=== PATIENT | male | born 1960 | race Caucasian/White ===

== ENCOUNTER 2021-01-08 15:31 | Emergency (ER) | payer BC ==
[2021-01-08 15:39] VITALS: RESP 18
[2021-01-08] MEDS ORDERED: SODIUM CHLORIDE 0.9% 1,000 ML IV STA (15:45)
[2021-01-08 15:59] LABS: Basophils # (A) 0.1 k/uL (0-0.2); Basophils % (A) 1 %; Eosinophils % (A) 0 %; HCT 45.5 % (39.0-53.0); HGB 16.3 gm/dL (13.0-17.5); Lymphocytes # (A) 0.9 k/uL (1.0-4.8); Lymphocytes % (A) 15 %; MCH 33.7 pg (25.0-35.0); MCHC 35.9 g/dL (31.0-37.0); MCV 93.9 fL (80.0-100.0); Mean Platelet Volume 7.3; Monocytes # (A) 0.5 k/uL (0-1.0); Monocytes % (A) 9 %; Neutrophils # (A) 4.3 k/uL (1.3-7.7); Neutrophils % (A) 74 %; Platelet Count 196 k/uL (150-450); RBC 4.84 m/uL (4.30-5.90); RDW 12.5 % (11.5-15.5); WBC 5.8 k/uL (3.8-10.6)
[2021-01-08 16:07] LABS: ALT 57 U/L (4-49); AST 73 U/L (17-59); African American GFR (CKD) >90 (>60 ml/min/1.73 sqM); Albumin 4.3 g/dL (3.5-5.0); Alkaline Phosphatase 88 U/L (38-126); Anion Gap 15 mmol/L; Blood Urea Nitrogen 16 mg/dL (9-20); Calcium 8.6 mg/dL (8.4-10.2); Carbon Dioxide 21 mmol/L (22-30); Chloride 100 mmol/L (98-107); Glucose 120 mg/dL (74-99); Magnesium 1.8 mg/dL (1.6-2.3); Non-African American GFR(CKD) 87 (>60 ml/min/1.73 sqM); Potassium 3.1 mmol/L (3.5-5.1); Sodium 136 mmol/L (137-145); Total Bilirubin 0.5 mg/dL (0.2-1.3); Total Protein 7.6 g/dL (6.3-8.2)
--- NOTE | 2021-01-08 16:15 | XR ---
EXAMINATION TYPE: XR chest 2V DATE OF EXAM: 01/08/2021 COMPARISON: NONE HISTORY: Shortness of breath and nausea. Chest pain. Covid contact. TECHNIQUE: Frontal and lateral views of the chest are obtained. FINDINGS: There faint increased opacities in the lower lungs and periphery of the left mid to lower lung and periphery right upper lung. No pleural effusion or pneumothorax. Background mild chronic par enchymal change felt present. The cardiac silhouette size is upper limits of normal. Multilevel spur ring in the spine. IMPRESSION: Chronic parenchymal changes with suspected faint multifocal bilateral peripheral acute i nfiltrates, worrisome for covid-19 infection.
[2021-01-08 16:16] LABS: Partial Thromboplastin Time 25.8 sec (22.0-30.0); Prothrombin Time 10.6 sec (9.0-12.0)
[2021-01-08] MEDS ORDERED: dexAMETHasone 2 MG TAB PO STA ×2 (16:37→18:19)
[2021-01-08 17:16] VITALS: TEMP 100.8
[2021-01-08] MEDS ORDERED: ACETAMINOPHEN TAB 325 MG TAB PO STA (17:42)
[2021-01-08] MEDS ORDERED: BAMLANIVIMAB 700 MG in SODIUM CHLORIDE 0.9% 50 ML IVPB ONE (17:45)
--- NOTE | 2021-01-08 18:51 | ED ---
SOB HPI - General Chief Complaint: Shortness of Breath Stated Complaint: possible COVID Time Seen by Provider: 01/08/21 15:36 Source: EMS Mode of arrival: EMS Limitations: no limitations - History of Present Illness Initial Comments: Patient complains of shortness of breath. He has no palpitations. He has no nausea or vomiting. He has no weakness. He has no lightheadedness. He has no dizziness. He has been exposed to another ill person. - Related Data Home Medications Medication Instructions Recorded Confirmed Pantoprazole Sodium [Protonix] 40 mg PO DAILY 01/11/15 01/08/21 lisinopriL [Prinivil] 20 mg PO DAILY 01/11/15 01/08/21 FLUoxetine HCL [PROzac] 10 mg PO DAILY 01/08/21 01/08/21 Magnesium Oxide [Mag-Ox] 800 mg PO DAILY 01/08/21 01/08/21 Simvastatin [Zocor] 20 mg PO HS 01/08/21 01/08/21 amLODIPine [Norvasc] 10 mg PO DAILY 01/08/21 01/08/21 Allergies Allergy/AdvReac Type Severity Reaction Status Date / Time clarithromycin [From Biaxin] Allergy Rash/Hives Verified 01/08/21 17:23 Review of Systems ROS Statement: Those systems with pertinent positive or pertinent negative responses have been documented in the HPI. ROS Other: All systems not noted in ROS Statement are negative. Past Medical History Past Medical History: GERD/Reflux, Hyperlipidemia, Hypertension Additional Past Medical History / Comment(s): "chest tightness", History of Any Multi-Drug Resistant Organisms: None Reported Past Surgical History: Heart Catheterization, Hernia Repair Past Anesthesia/Blood Transfusion Reactions: No Reported Reaction Past Psychological History: No Psychological Hx Reported Smoking Status: Never smoker Past Alcohol Use History: Daily Past Drug Use History: None Reported - Past Family History Mother Family Medical History: Cancer Brother(s) Family Medical History: Cancer General Exam Limitations: no limitations General appearance: alert, in no apparent distress Head exam: Present: atraumatic, normocephalic, normal inspection Eye exam: Present: normal appearance, PERRL, EOMI. Absent: scleral icterus, conjunctival injection, periorbital swelling ENT exam: Present: normal exam, mucous membranes moist Neck exam: Present: normal inspection. Absent: tenderness, meningismus, lymphadenopathy Respiratory exam: Present: normal lung sounds bilaterally. Absent: respiratory distress, wheezes, rales, rhonchi, stridor Cardiovascular Exam: Present: regular rate, normal rhythm, normal heart sounds. Absent: systolic murmur, diastolic murmur, rubs, gallop, clicks GI/Abdominal exam: Present: soft, normal bowel sounds. Absent: distended, tenderness, guarding, rebound, rigid Extremities exam: Present: normal inspection, full ROM, normal capillary refill. Absent: tenderness, pedal edema, joint swelling, calf tenderness Back exam: Present: normal inspection Neurological exam: Present: alert, oriented X3, CN II-XII intact Psychiatric exam: Present: normal affect, normal mood Skin exam: Present: warm, dry, intact, normal color. Absent: rash Course Vital Signs 01/08/21 01/08/21 01/08/21 15:33 17:16 18:00 Temperature 99.9 F H 100.8 F H Pulse Rate 87 87 82 Respiratory 18 18 18 Rate Blood Pressure 128/78 112/63 131/81 O2 Sat by Pulse 94 L 95 94 L Oximetry Medical Decision Making - Medical Decision Making Patient has some shortness of breath. His workup does not reveal an emergency requiring admission. He is feeling better after IV therapy and is stable for discharge. - Lab Data Result diagrams: 01/08/21 15:47 01/08/21 15:47 Lab Results 01/08/21 01/08/21 01/08/21 Range/Units 15:47 15:47 15:47 WBC 5.8 (3.8-10.6) k/uL RBC 4.84 (4.30-5.90) m/uL Hgb 16.3 (13.0-17.5) gm/dL Hct 45.5 (39.0-53.0) % MCV 93.9 (80.0-100.0) fL MCH 33.7 (25.0-35.0) pg MCHC 35.9 (31.0-37.0) g/dL RDW 12.5 (11.5-15.5) % Plt Count 196 (150-450) k/uL MPV 7.3 Neutrophils % 74 % Lymphocytes % 15 % Monocytes % 9 % Eosinophils % 0 % Basophils % 1 % Neutrophils # 4.3 (1.3-7.7) k/uL Lymphocytes # 0.9 L (1.0-4.8) k/uL Monocytes # 0.5 (0-1.0) k/uL Eosinophils # 0.0 (0-0.7) k/uL Basophils # 0.1 (0-0.2) k/uL PT 10.6 (9.0-12.0) sec INR 1.0 (<1.2) APTT 25.8 (22.0-30.0) sec Sodium 136 L (137-145) mmol/L Potassium 3.1 L (3.5-5.1) mmol/L Chloride 100 (98-107) mmol/L Carbon Dioxide 21 L (22-30) mmol/L Anion Gap 15 mmol/L BUN 16 (9-20) mg/dL Creatinine 0.95 (0.66-1.25) mg/dL Est GFR (CKD-EPI)AfAm >90 (>60 ml/min/1.73 sqM) Est GFR (CKD-EPI)NonAf 87 (>60 ml/min/1.73 sqM) Glucose 120 H (74-99) mg/dL Calcium 8.6 (8.4-10.2) mg/dL Magnesium 1.8 (1.6-2.3) mg/dL Total Bilirubin 0.5 (0.2-1.3) mg/dL AST 73 H (17-59) U/L ALT 57 H (4-49) U/L Alkaline Phosphatase 88 (38-126) U/L Troponin I (0.000-0.034) ng/mL NT-Pro-B Natriuret Pep pg/mL Total Protein 7.6 (6.3-8.2) g/dL Albumin 4.3 (3.5-5.0) g/dL Coronavirus (PCR) (Not Detectd) 01/08/21 01/08/21 01/08/21 Range/Units 15:47 15:47 15:49 WBC (3.8-10.6) k/uL RBC (4.30-5.90) m/uL Hgb (13.0-17.5) gm/dL Hct (39.0-53.0) % MCV (80.0-100.0) fL MCH (25.0-35.0) pg MCHC (31.0-37.0) g/dL RDW (11.5-15.5) % Plt Count (150-450) k/uL MPV Neutrophils % % Lymphocytes % % Monocytes % % Eosinophils % % Basophils % % Neutrophils # (1.3-7.7) k/uL Lymphocytes # (1.0-4.8) k/uL Monocytes # (0-1.0) k/uL Eosinophils # (0-0.7) k/uL Basophils # (0-0.2) k/uL PT (9.0-12.0) sec INR (<1.2) APTT (22.0-30.0) sec Sodium (137-145) mmol/L Potassium (3.5-5.1) mmol/L Chloride (98-107) mmol/L Carbon Dioxide (22-30) mmol/L Anion Gap mmol/L BUN (9-20) mg/dL Creatinine (0.66-1.25) mg/dL Est GFR (CKD-EPI)AfAm (>60 ml/min/1.73 sqM) Est GFR (CKD-EPI)NonAf (>60 ml/min/1.73 sqM) Glucose (74-99) mg/dL Calcium (8.4-10.2) mg/dL Magnesium (1.6-2.3) mg/dL Total Bilirubin (0.2-1.3) mg/dL AST (17-59) U/L ALT (4-49) U/L Alkaline Phosphatase (38-126) U/L Troponin I <0.012 (0.000-0.034) ng/mL NT-Pro-B Natriuret Pep 23 pg/mL Total Protein (6.3-8.2) g/dL Albumin (3.5-5.0) g/dL Coronavirus (PCR) Detected A (Not Detectd) 01/08/21 18:51 Twelve-lead EKG shows ventricular rate 84 bpm, normal ME interval and QRS complexes, no ST elevation or depression, interpreted by me as normal sinus rhythm. Disposition Clinical Impression: COVID-19 Disposition: HOME SELF-CARE Condition: Good Instructions (If sedation given, give patient instructions): Coronavirus Disease 2019 (COVID-19) Is patient prescribed a controlled substance at d/c from ED?: No Referrals: Ken Hanley MD [Primary Care Provider] - 1-2 days
[2021-01-08 19:47] VITALS: BP 117/74; PULSE 76
== END 2021-01-08 19:50 | disposition home or self-care (01) ==
LOC: EC 15:31
DX: U07.1 COVID-19 (principal); E78.5 Hyperlipidemia, unspecified; I10 Essential (primary) hypertension; K21.9 Gastro-esophageal reflux disease without esophagitis; Z79.899 Other long term (current) drug therapy
CPT/HCPCS: 36415; 93005; 83880; 80053; 83735; 84484; 85025; 85610; 85730; 87635; 71046; 99285; 96374; 96361; J8540; Q0239

== ENCOUNTER 2021-01-20 15:03 | Inpatient (IN) | payer BC ==
[2021-01-20] MEDS ORDERED: SODIUM CHLORIDE 0.9% 1,000 ML IV STA ×2 (15:26)
[2021-01-20] MEDS ORDERED: ONDANSETRON 4 MG/2 ML VIAL IVP STA (15:28)
[2021-01-20 15:53] LABS: Basophils # (A) 0.1 k/uL (0-0.2); Basophils % (A) 1 %; Eosinophils # (A) 0.2 k/uL (0-0.7); Eosinophils % (A) 2 %; HCT 40.8 % (39.0-53.0); HGB 14.3 gm/dL (13.0-17.5); Lymphocytes # (A) 2.1 k/uL (1.0-4.8); Lymphocytes % (A) 17 %; MCH 32.2 pg (25.0-35.0); Mean Platelet Volume 7.4; Monocytes # (A) 0.7 k/uL (0-1.0); Monocytes % (A) 5 %; Neutrophils # (A) 9.4 k/uL (1.3-7.7); Neutrophils % (A) 73 %; RBC 4.44 m/uL (4.30-5.90); RDW 12.4 % (11.5-15.5); WBC 12.8 k/uL (3.8-10.6)
--- NOTE | 2021-01-20 15:57 | ED ---
General Adult HPI - General Chief complaint: Recheck/Abnormal Lab/Rx Stated complaint: low blood pressure Time Seen by Provider: 01/20/21 15:15 Source: patient, EMS Mode of arrival: EMS Limitations: no limitations - History of Present Illness Initial comments: This 60-year-old male presents with a complaint of hypotension. He states that he was diagnosed with covid approximately 2 weeks ago. He initially was having some slight cough and shortness of breath. He was seen in the emergency department last week but was able to be discharged home. He states that over the past 3 days he is developed significant diarrhea. Every time he tries to eat or drink anything he will have diarrhea. He has had mild nausea but no vomiting. He denies any fevers or abdominal pain. He states that his blood pressure at home apparently was 60 systolic. If he stands up and he gets very lightheaded. He does complain of moderate fatigue as well. He denies any current chest pain or shortness of breath. There is no lower extremity pain or swelling. No other complaints or modifying factors. He denies any history of kidney problems in the past. He's never had any renal failure. He was here approximately 10 days ago and had normal renal function studies at that time. He states that his food and fluid input has been very minimal. He still is making minimal urine as well. - Related Data Home Medications Medication Instructions Recorded Confirmed Pantoprazole Sodium [Protonix] 40 mg PO DAILY 01/11/15 01/08/21 lisinopriL [Prinivil] 20 mg PO DAILY 01/11/15 01/08/21 FLUoxetine HCL [PROzac] 10 mg PO DAILY 01/08/21 01/08/21 Magnesium Oxide [Mag-Ox] 800 mg PO DAILY 01/08/21 01/08/21 Simvastatin [Zocor] 20 mg PO HS 01/08/21 01/08/21 amLODIPine [Norvasc] 10 mg PO DAILY 01/08/21 01/08/21 Allergies Allergy/AdvReac Type Severity Reaction Status Date / Time clarithromycin [From Biaxin] Allergy Rash/Hives Verified 01/20/21 15:32 Review of Systems ROS Statement: Those systems with pertinent positive or pertinent negative responses have been documented in the HPI. ROS Other: All systems not noted in ROS Statement are negative. Past Medical History Past Medical History: GERD/Reflux, Hyperlipidemia, Hypertension Additional Past Medical History / Comment(s): "chest tightness", History of Any Multi-Drug Resistant Organisms: None Reported Past Surgical History: Heart Catheterization, Hernia Repair Past Anesthesia/Blood Transfusion Reactions: No Reported Reaction Past Psychological History: No Psychological Hx Reported Smoking Status: Never smoker Past Alcohol Use History: Daily Past Drug Use History: None Reported - Past Family History Mother Family Medical History: Cancer Brother(s) Family Medical History: Cancer General Exam - General Exam Comments Initial Comments: GENERAL: The patient is well nourished and well hydrated. VITAL SIGNS: Heart rate, blood pressure, respiratory rate reviewed as recorded in nurse's notes. EYES: Pupils are round and reactive. Extraocular movements are intact. No conjunctival / lid redness or swelling. ENT: No external evidence of injury, swelling, or ecchymosis. Airway is patent. Throat is clear. NECK: Nontender. No swelling or evidence of injury. No subcutaneous emphysema. Trachea is midline. No thyroid mass. HEART: Regular rate and rhythm. Good peripheral pulses. LUNGS/CHEST: Breath sounds clear and equal bilaterally. No rales, rhonchi, or wheezes. No ecchymosis, subcutaneous emphysema, or tenderness. ABDOMEN: Abdomen soft without tenderness. No palpable masses or organomegaly. No peritoneal signs. No abdominal wall swelling or ecchymosis. EXTREMITIES: No extremity tenderness. Normal muscle tone and function. No thoracolumbar tenderness. NEUROLOGIC: Sensation is grossly intact. Cranial nerve exam reveals face is symmetrical, tongue is midline, speech is clear. SKIN: No abrasions or ecchymosis is noted. No induration or masses noted. PSYCHIATRIC: Alert and oriented. Appropriate behavior and judgment. Limitations: no limitations Course Vital Signs 01/20/21 01/20/21 01/20/21 15:06 15:44 16:25 Temperature 98.2 F Pulse Rate 85 72 84 Respiratory 18 18 18 Rate Blood Pressure 87/58 93/50 100/53 O2 Sat by Pulse 99 100 98 Oximetry Medical Decision Making - Medical Decision Making The patient was seen and examined. All diagnostics are reviewed. The EKG shows a normal sinus rhythm at a rate of 74. There is some diffuse flattened T waves but no ST elevation. The patient has right axis deviation. The IN intervals 170, QRS duration 96, and the QTc interval is 441. An IV is started and he is thoroughly hydrated with 2 L of 0.9 normal saline. He received Zofran 4 mg IV. His laboratory values came back showing a severe elevation of his BUN and creatinine consistent with acute kidney injury. His platelets are slightly elevated and his white blood cell count is slightly elevated as well. The CO2 is significantly low at 13. It is felt as though he is acidotic. He likely does have acute kidney injury due to his lack of hydration and significant diarrhea. Acute abdominal series with chest x-ray does show evidence of pneumonia, likely covid pneumonia. It is felt as though he would benefit from admission to the hospital for further treatment. Case is discussed with Dr. Wilson and he is agreeable with admission and would like D5 0.45 with bicarbonate. Page is out for the engineering technologist and we're currently awaiting their call back. His blood pressure has improved with IV fluids. Patient is agreeable and QUESTIONS are answered. - Lab Data Result diagrams: 01/20/21 15:42 01/20/21 15:42 Lab Results 01/20/21 01/20/21 01/20/21 Range/Units 15:42 15:42 15:42 WBC 12.8 H (3.8-10.6) k/uL RBC 4.44 (4.30-5.90) m/uL Hgb 14.3 (13.0-17.5) gm/dL Hct 40.8 (39.0-53.0) % MCV 92.0 (80.0-100.0) fL MCH 32.2 (25.0-35.0) pg MCHC 35.0 (31.0-37.0) g/dL RDW 12.4 (11.5-15.5) % Plt Count 615 H D (150-450) k/uL MPV 7.4 Neutrophils % 73 % Lymphocytes % 17 % Monocytes % 5 % Eosinophils % 2 % Basophils % 1 % Neutrophils # 9.4 H (1.3-7.7) k/uL Lymphocytes # 2.1 (1.0-4.8) k/uL Monocytes # 0.7 (0-1.0) k/uL Eosinophils # 0.2 (0-0.7) k/uL Basophils # 0.1 (0-0.2) k/uL PT 12.6 H (9.0-12.0) sec INR 1.2 H (<1.2) APTT 24.0 (22.0-30.0) sec Sodium 137 (137-145) mmol/L Potassium 3.5 (3.5-5.1) mmol/L Chloride 104 (98-107) mmol/L Carbon Dioxide 13 L (22-30) mmol/L Anion Gap 20 mmol/L BUN 73 H (9-20) mg/dL Creatinine 9.43 H* (0.66-1.25) mg/dL Est GFR (CKD-EPI)AfAm 6 (>60 ml/min/1.73 sqM) Est GFR (CKD-EPI)NonAf 5 (>60 ml/min/1.73 sqM) Glucose 133 H (74-99) mg/dL Plasma Lactic Acid Daniel (0.7-2.0) mmol/L Calcium 8.7 (8.4-10.2) mg/dL Magnesium 1.6 (1.6-2.3) mg/dL Total Bilirubin 0.5 (0.2-1.3) mg/dL AST 27 (17-59) U/L ALT 61 H (4-49) U/L Alkaline Phosphatase 122 (38-126) U/L Troponin I (0.000-0.034) ng/mL Total Protein 6.8 (6.3-8.2) g/dL Albumin 3.5 (3.5-5.0) g/dL 01/20/21 01/20/21 Range/Units 15:42 15:42 WBC (3.8-10.6) k/uL RBC (4.30-5.90) m/uL Hgb (13.0-17.5) gm/dL Hct (39.0-53.0) % MCV (80.0-100.0) fL MCH (25.0-35.0) pg MCHC (31.0-37.0) g/dL RDW (11.5-15.5) % Plt Count (150-450) k/uL MPV Neutrophils % % Lymphocytes % % Monocytes % % Eosinophils % % Basophils % % Neutrophils # (1.3-7.7) k/uL Lymphocytes # (1.0-4.8) k/uL Monocytes # (0-1.0) k/uL Eosinophils # (0-0.7) k/uL Basophils # (0-0.2) k/uL PT (9.0-12.0) sec INR (<1.2) APTT (22.0-30.0) sec Sodium (137-145) mmol/L Potassium (3.5-5.1) mmol/L Chloride (98-107) mmol/L Carbon Dioxide (22-30) mmol/L Anion Gap mmol/L BUN (9-20) mg/dL Creatinine (0.66-1.25) mg/dL Est GFR (CKD-EPI)AfAm (>60 ml/min/1.73 sqM) Est GFR (CKD-EPI)NonAf (>60 ml/min/1.73 sqM) Glucose (74-99) mg/dL Plasma Lactic Acid Daniel 1.0 (0.7-2.0) mmol/L Calcium (8.4-10.2) mg/dL Magnesium (1.6-2.3) mg/dL Total Bilirubin (0.2-1.3) mg/dL AST (17-59) U/L ALT (4-49) U/L Alkaline Phosphatase (38-126) U/L Troponin I <0.012 (0.000-0.034) ng/mL Total Protein (6.3-8.2) g/dL Albumin (3.5-5.0) g/dL Disposition Clinical Impression: Diarrhea, Hypotension, Dehydration, COVID-19, Acute kidney injury, Acidosis, Leukocytosis, Pneumonia due to COVID-19 virus, Weakness Disposition: ADMITTED IP TO THIS [facility] Condition: Fair Is patient prescribed a controlled substance at d/c from ED?: No Referrals: Ken Hanley MD [Primary Care Provider] - 1-2 days Time of Disposition: 16:55 Decision Date: 01/20/21 Decision Time: 16:55
[2021-01-20 16:01] LABS: Platelet Count 615 k/uL (150-450)
[2021-01-20 16:02] LABS: Albumin 3.5 g/dL (3.5-5.0); Calcium 8.7 mg/dL (8.4-10.2); Magnesium 1.6 mg/dL (1.6-2.3); Potassium 3.5 mmol/L (3.5-5.1); Total Bilirubin 0.5 mg/dL (0.2-1.3); Total Protein 6.8 g/dL (6.3-8.2)
[2021-01-20 16:08] LABS: INR 1.2 (<1.2); Prothrombin Time 12.6 sec (9.0-12.0)
--- NOTE | 2021-01-20 16:10 | XR ---
EXAMINATION TYPE: XR abdomen acute w cxr DATE OF EXAM: 01/20/2021 COMPARISON: None HISTORY: Diarrhea TECHNIQUE: Acute abdominal series performed with a frontal chest and 6 upright and supine views of th e abdomen. FINDINGS: Normal colonic bowel gas is present. Some nonspecific small bowel gas is present. No free a ir is evident. No suspicious differential air-fluid levels are evident. Heart size is normal. Pulmonary vasculature is normal. Some mild infiltrate may be present within the lung coles this is nonspecific and can be related to subsegmental atelectasis or atypical pneumonia IMPRESSION: 1. Clinical consideration for mild atypical pneumonia. 2. Nonspecific abdomen
[2021-01-20] MEDS ORDERED: ONDANSETRON 4 MG/2 ML VIAL IVP PRN (16:56)
[2021-01-20] MEDS ORDERED: NALOXONE 0.4 MG/ML 1 ML VIAL IV PRN (16:56)
[2021-01-20] MEDS ORDERED: HYDROcodone/APAP 5-325MG 1 EACH TAB PO PRN (17:01)
[2021-01-20] MEDS: ENOXAPARIN 40 MG/0.4 ML SYRINGE SQ SCH (17:20)
[2021-01-20] MEDS: PANTOPRAZOLE 40 MG/10 ML VIAL IV SCH (17:21)
[2021-01-20] MEDS ORDERED: DEXTROSE 5%-0.45% NACL 1,000 ML with SODIUM BICARB (1 MEQ/ML) 50 ML IV ONE ×2 (17:30)
[2021-01-20 19:11] LABS: Appearance,Urine Clear (Clear); Bilirubin,Urine Negative (Negative); Blood,Urine Trace (Negative); Color,Urine Yellow; Glucose,Urine (UA) Negative (Negative); Hyaline Casts,Urine 65 /lpf (0-2); Ketones,Urine Negative (Negative); Leukocyte Esterase,Urine Negative (Negative); Mucus,Urine Occasional /hpf; Nitrite,Urine Negative (Negative); Protein,Urine 1+ (Negative); RBC,Urine 3 /hpf (0-5); Specific Gravity,Urine 1.008 (1.001-1.035); Squamous Epithelial Cell,Urine <1 /hpf (0-4); Urobilinogen,Urine <2.0 mg/dL (<2.0); WBC,Urine 6 /hpf (0-5)
[2021-01-20] MEDS: ATORVASTATIN 10 MG TAB PO SCH (21:34)
[2021-01-21] MEDS: DEXTROSE 5%-0.45% NACL 1,000 ML with SODIUM BICARB (1 MEQ/ML) 50 ML IV SCH ×6 (04:41→18:18)
[2021-01-21 08:02] LABS: Calcium 8.8 mg/dL (8.4-10.2); Magnesium 1.4 mg/dL (1.6-2.3); Potassium 3.2 mmol/L (3.5-5.1)
[2021-01-21 08:51] LABS: Basophils # (A) 0.1 k/uL (0-0.2); Basophils % (A) 1 %; Eosinophils # (A) 0.2 k/uL (0-0.7); Eosinophils % (A) 2 %; HCT 40.4 % (39.0-53.0); HGB 14.1 gm/dL (13.0-17.5); Lymphocytes # (A) 1.9 k/uL (1.0-4.8); Lymphocytes % (A) 20 %; MCH 32.6 pg (25.0-35.0); MCV 93.1 fL (80.0-100.0); Mean Platelet Volume 7.4; Monocytes # (A) 1.2 k/uL (0-1.0); Monocytes % (A) 12 %; Neutrophils # (A) 6.1 k/uL (1.3-7.7); Neutrophils % (A) 63 %; Platelet Count 610 k/uL (150-450); RBC 4.33 m/uL (4.30-5.90); RDW 12.5 % (11.5-15.5); WBC 9.8 k/uL (3.8-10.6)
[2021-01-21] MEDS ORDERED: Magnesium Replacement Protocol 1 EACH MISC MISCELLANE PRN (09:13)
[2021-01-21] MEDS ORDERED: Potassium Replacement Protocol 1 EACH MISC MISCELLANE PRN (09:13)
[2021-01-21] MEDS: MAGNESIUM OXIDE 400 MG TAB PO SCH (09:30)
[2021-01-21] MEDS: POTASSIUM CHLORIDE ER 20 MEQ TAB.ER PO SCH ×4 (09:30→18:18)
[2021-01-21] MEDS: PANTOPRAZOLE 40 MG/10 ML VIAL IV SCH (09:30)
[2021-01-21] MEDS: ENOXAPARIN 40 MG/0.4 ML SYRINGE SQ SCH (09:31)
[2021-01-21] MEDS: MAGNESIUM SULFATE-D5W PMX 1 GM in DEXTROSE/WATER 1 100ML.BAG IVPB SCH ×3 (09:31→11:08)
[2021-01-21] MEDS: FLUoxetine HCL 10 MG CAP PO SCH (09:33)
[2021-01-21 10:37] VITALS: BMI 24.7
--- NOTE | 2021-01-21 11:41 | CONS ---
CONSULTATION REASON FOR CONSULT: Renal failure. HISTORY OF PRESENT ILLNESS: The patient is a 60-year-old male who was admitted to the hospital with complaints of increased weakness and hypotension. The patient stated that his blood pressure was in the 60s at home and he had been feeling progressively weak. He is maintained on HUGO inhibitors for hypertension. He admitted to decreased oral intake. Denies significant diarrhea. No fever. The patient's COVID PCR came back positive. His creatinine was 9.4 on labs yesterday and this morning it is at 3.26. Blood pressure is improved. Patient has been maintained on IV fluids. Of note, patient did report having diarrhea for about 2-3 days prior to admission. No previous history of kidney diseases. The patient did admit to taking NSAIDs as well. PAST MEDICAL HISTORY: Hypertension, gastroesophageal reflux disease, hyperlipidemia. PAST SURGICAL HISTORY: Cardiac catheterization, hernia repair. SOCIAL HISTORY: Negative for smoking, drug abuse or alcohol abuse. MEDICATIONS: Medications prior to admission include Protonix, Prinivil, Prozac, magnesium, Zocor, Norvasc. ALLERGIES: Allergies include BIAXIN causes rash and hives. REVIEW OF SYSTEMS: As per HPI. Other systems negative. PHYSICAL EXAMINATION: Patient is comfortable, awake, not in any acute distress. Blood pressure 103/62, heart rate 74 per minute. He is afebrile. Examination of lower extremities shows no evidence of edema. Abdomen is soft, nontender. ELECTRICAL INSTALLER exam grossly intact. LABS: Labs show sodium 143, potassium 3.2, chloride 116, CO2 is 19, BUN 53, creatinine 3.26, hemoglobin 14.1. UA shows 1+ protein, trace blood. PCR for coronavirus positive. ASSESSMENT: 1. Acute kidney injury prerenal and a component of acute tubular necrosis, significantly improved now with IV hydration. Patient was quite hypotensive. He also had used NSAIDs along with his regular HUGO inhibitors for hypertension prior to admission. Currently patient is maintained on IV fluids. I will continue the IV fluids. We will check an ultrasound of the kidneys and repeat labs in a.m. Patient is advised to avoid use of NSAIDs and continue to hold off on the HUGO inhibitors for now. 2. Severe metabolic acidosis associated with renal failure and diarrhea, now improved. 3. COVID-19 infection diagnosed 2 weeks ago. Chest x-ray does not show any obvious infiltrates. 4. Hypokalemia associated with diarrhea, decreased oral intake, being replaced. PLAN: Continue IV fluids in the form of IV bicarb. Repeat labs in a.m. Replace potassium. Check ultrasound of the kidneys. Thank you for this consultation. Will continue to follow the patient with you during his hospitalization. MMJACKYL / TAMIKAN: [id number] /
--- NOTE | 2021-01-21 13:19 | US ---
EXAMINATION TYPE: US kidneys/renal and bladder DATE OF EXAM: 01/21/2021 COMPARISON: NONE CLINICAL HISTORY: rf. Elevated BUN/creatinine. EXAM MEASUREMENTS: Right Kidney: 12.9 x 4.9 x 5.8cm Left Kidney: 12.1 x 6.7 x 5.0 cm Right Kidney: measures large, cyst measuring 1.5 x 0.7 x 0.8cm Left Kidney: similar in size to right, no hydronephrosis or masses seen Bladder: wnl as seen, not fully distended There is no evidence for hydronephrosis at this point in time. No nephrolithiasis is seen. No alexandre rning solid or cystic masses are identified. Subcentimeter lesion right kidney too small to definiti vely characterize favored benign. The urinary bladder is poorly distended and is thus suboptimally ev aluated. Bilateral ureteral jets are not seen. IMPRESSION: No hydronephrosis is noted bilaterally.
[2021-01-21 15:20] LABS: Magnesium 2.6 mg/dL (1.6-2.3)
[2021-01-21] MEDS: PSYLLIUM HUSK 100% 6 GM PACKET PO SCH ×2 (17:10→19:56)
[2021-01-21] MEDS: DIPHENOX-ATROP 2.5-0.025 MG 1 EACH TAB PO SCH ×2 (17:10→19:56)
[2021-01-21] MEDS: FAMOTIDINE 20 MG TAB PO SCH ×2 (17:14→19:56)
[2021-01-21] MEDS: ATORVASTATIN 10 MG TAB PO SCH (19:56)
[2021-01-21 19:59] VITALS: RESP 18
--- NOTE | 2021-01-22 | P.HPIM ---
History of Present Illness H&P Date: 01/21/21 Chief Complaint: Tired History of presenting complaint: This is a pleasant [address] Hanley. He was diagnosed with COVID about 2 weeks ago. Initially a slight cough and some shortness of breath. Becky in the ER about a week ago but he was discharged on. On the last few days he has developed quite a bit of diarrhea. He feels every time he eats or drink at rest through. Some nausea. His blood pressure at home was noted to be about 60 systolic. He gets dizzy lightheaded when he stands up. Feels very tired and rundown. He had some fever earlier than likely improved. About 10 days ago when he was here his renal function was normal. Appetite has been poor. Decreased urine output Review of systems: GEN.: Weak tired decreased appetite EYES: None HEENT: None NECK: None RESPIRATORY: None CARDIOVASCULAR: None GASTROINTESTINAL: As above GENITOURINARY: None MUSCULOSKELETAL: None LYMPHATICS: None HEMATOLOGICAL: None PSYCHIATRY: None NEUROLOGICAL: None Past medical history to include: GERD, hypertension, hyperlipidemia Social history: . 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 Former smoker. Alcohol occasionally Physical examination: VITAL SIGNS: 98.2, 85, 18, 87/58, 99% on room air GENERAL: BMI 24.8, laying in bed, tired. EYES: Pupils equal. Conjunctiva normal. HEENT: External appearance of nose and ears normal, oral cavity grossly normal. NECK: JVD not raised; masses not palpable. HEART: First and second heart sounds are normal; no edema. LUNGS: Respiratory rate normal; clear to auscultation. ABDOMEN: Soft, nontender, liver spleen not palpable, no masses palpable. PSYCH: [Alert and oriented x3; mood and affect tired l. NEUROLOGICAL: Cranial nerves grossly intact; no facial asymmetry, power and sensation grossly intact. LYMPHATICS: No lymph nodes palpable in the axilla and neck INVESTIGATIONS, reviewed in the clinical context: WBC 9.8 hemoglobin 14.1 platelet 610 potassium 3.2 bun 53 creatinine 3.26 magnesia 1.4 EKG tracing personally reviewed by me-normal sinus rhythm nonspecific ST/T-wave changes Admission labs: WBC 12.8 hemoglobin 14.3 potassium 3.5 bun 73 creatinine 9.43 Coronavirus [PCR]-detected Previous labs: Creatinine 0.951 January 08 of this year Assessment and plan: -Acute severe kidney injury, prerenal due to diarrhea and decreased oral intake. IV fluids given. Kidney function started to respond. Nephrology consulted. Follow electrolytes -Acute diarrhea likely due to COVID 19. We will use Metamucil to bind up the bowels. And also use Lomotil -Nausea secondary to COVID 19. She was for liquid diet -GERD, use Pepcid -Essential hypertension. Hold off antihypertensive for now. -Symptomatic hypotension from volume loss. IV fluids. -Hyperlipidemia, on Zocor -Anxiety on Prozac -DVT prophylaxis placed on Lovenox -: COVID 19 pneumonia. Patient check stat x-ray on January 08 showed infiltrates. Patient's pulse ox is good. No indication for steroids. Care was discussed with the patient. Questions answered. Given the complexity and severity of patient's condition expect the patient to be in the hospital at least for 2 overnights Past Medical History Past Medical History: GERD/Reflux, Hyperlipidemia, Hypertension Additional Past Medical History / Comment(s): "chest tightness", History of Any Multi-Drug Resistant Organisms: None Reported Past Surgical History: Cholecystectomy, Heart Catheterization, Hernia Repair Past Anesthesia/Blood Transfusion Reactions: No Reported Reaction Past Psychological History: No Psychological Hx Reported Smoking Status: Former smoker Past Alcohol Use History: Occasional Past Drug Use History: None Reported - Past Family History Mother Family Medical History: Cancer Brother(s) Family Medical History: Cancer Medications and Allergies Home Medications Medication Instructions Recorded Confirmed Type Pantoprazole Sodium [Protonix] 40 mg PO DAILY 01/11/15 01/20/21 History lisinopriL [Prinivil] 20 mg PO DAILY 01/11/15 01/20/21 History FLUoxetine HCL [PROzac] 10 mg PO DAILY 01/08/21 01/20/21 History Magnesium Oxide [Mag-Ox] 800 mg PO DAILY 01/08/21 01/20/21 History Simvastatin [Zocor] 20 mg PO HS 01/08/21 01/20/21 History amLODIPine [Norvasc] 10 mg PO DAILY 01/08/21 01/20/21 History HYDROcodone/APAP 5-325MG [[place] 1 tab PO Q6HR PRN 01/20/21 01/20/21 History 5-325] Allergies Allergy/AdvReac Type Severity Reaction Status Date / Time clarithromycin [From Biaxin] Allergy Rash/Hives Verified 01/20/21 16:56 Physical Exam Vitals: Vital Signs Temp Pulse Pulse Resp BP BP Pulse Ox 01/21/21 04:00 98.1 F 74 16 103/62 94 L 01/21/21 02:34 98.1 F 81 17 118/70 99 01/20/21 23:00 98.9 F 85 18 110/64 97 01/20/21 21:00 98.9 F 85 18 110/64 97 01/20/21 19:23 86 18 96 01/20/21 18:36 86 18 101/60 95 01/20/21 17:25 86 18 103/59 97 01/20/21 16:25 84 18 100/53 98 01/20/21 15:44 72 18 93/50 100 01/20/21 15:06 98.2 F 85 18 87/58 99 Intake and Output 01/20/21 01/21/21 01/21/21 22:59 06:59 14:59 Intake Total 538 Balance 538 Intake: Oral 538 Other: Voiding Method Toilet Toilet Urinal Urinal # Voids 1 # Bowel Movements 1 Weight 83.915 kg 83 kg Results CBC & Chem 7: 01/21/21 06:52 01/21/21 14:29 Labs: Abnormal Lab Results - Last 24 Hours (Table) 01/20/21 01/20/21 01/20/21 Range/Units 15:42 15:42 15:42 WBC 12.8 H (3.8-10.6) k/uL Plt Count 615 H D (150-450) k/uL Neutrophils # 9.4 H (1.3-7.7) k/uL Monocytes # (0-1.0) k/uL PT 12.6 H (9.0-12.0) sec INR 1.2 H (<1.2) Potassium (3.5-5.1) mmol/L Chloride (98-107) mmol/L Carbon Dioxide 13 L (22-30) mmol/L BUN 73 H (9-20) mg/dL Creatinine 9.43 H* (0.66-1.25) mg/dL Glucose 133 H (74-99) mg/dL Magnesium (1.6-2.3) mg/dL ALT 61 H (4-49) U/L Urine Protein (Negative) Urine Blood (Negative) Urine WBC (0-5) /hpf Hyaline Casts (0-2) /lpf Urine Mucus (None) /hpf Coronavirus (PCR) (Not Detectd) 01/20/21 01/20/21 01/21/21 Range/Units 17:27 18:55 06:52 WBC (3.8-10.6) k/uL Plt Count 610 H (150-450) k/uL Neutrophils # (1.3-7.7) k/uL Monocytes # 1.2 H (0-1.0) k/uL PT (9.0-12.0) sec INR (<1.2) Potassium (3.5-5.1) mmol/L Chloride (98-107) mmol/L Carbon Dioxide (22-30) mmol/L BUN (9-20) mg/dL Creatinine (0.66-1.25) mg/dL Glucose (74-99) mg/dL Magnesium (1.6-2.3) mg/dL ALT (4-49) U/L Urine Protein 1+ H (Negative) Urine Blood Trace H (Negative) Urine WBC 6 H (0-5) /hpf Hyaline Casts 65 H (0-2) /lpf Urine Mucus Occasional H (None) /hpf Coronavirus (PCR) Detected A (Not Detectd) 01/21/21 Range/Units 06:52 WBC (3.8-10.6) k/uL Plt Count (150-450) k/uL Neutrophils # (1.3-7.7) k/uL Monocytes # (0-1.0) k/uL PT (9.0-12.0) sec INR (<1.2) Potassium 3.2 L (3.5-5.1) mmol/L Chloride 116 H (98-107) mmol/L Carbon Dioxide 19 L (22-30) mmol/L BUN 53 H (9-20) mg/dL Creatinine 3.26 H (0.66-1.25) mg/dL Glucose 151 H (74-99) mg/dL Magnesium 1.4 L (1.6-2.3) mg/dL ALT (4-49) U/L Urine Protein (Negative) Urine Blood (Negative) Urine WBC (0-5) /hpf Hyaline Casts (0-2) /lpf Urine Mucus (None) /hpf Coronavirus (PCR) (Not Detectd) Thrombosis Risk Factor Assmnt - Choose All That Apply Any of the Below Risk Factors Present?: Yes Each Factor Represents 1 point: Age 41-60 years, Obesity (BMI >25) Other congenital or acquired thrombophilia - If yes, enter type in comment: Yes Thrombosis Risk Factor Assessment Total Risk Factor Score: 2 Thrombosis Risk Factor Assessment Level: Low Risk
[2021-01-22] MEDS: DEXTROSE 5%-0.45% NACL 1,000 ML with SODIUM BICARB (1 MEQ/ML) 50 ML IV SCH ×6 (02:44→21:10)
[2021-01-22] MEDS: PSYLLIUM HUSK 100% 6 GM PACKET PO SCH ×3 (08:56→20:38)
[2021-01-22] MEDS: ACETAMINOPHEN TAB 325 MG TAB PO PRN (08:59)
[2021-01-22] MEDS: DIPHENOX-ATROP 2.5-0.025 MG 1 EACH TAB PO SCH (08:59)
[2021-01-22] MEDS: ENOXAPARIN 40 MG/0.4 ML SYRINGE SQ SCH (08:59)
[2021-01-22] MEDS: FAMOTIDINE 20 MG TAB PO SCH ×2 (08:59→20:35)
[2021-01-22] MEDS: FLUoxetine HCL 10 MG CAP PO SCH (08:59)
[2021-01-22] MEDS: MAGNESIUM OXIDE 400 MG TAB PO SCH (08:59)
[2021-01-22] MEDS ORDERED: ENOXAPARIN 30 MG/0.3 ML SYRINGE SQ SCH (09:00)
[2021-01-22 10:09] LABS: African American GFR (CKD) >90 (>60 ml/min/1.73 sqM); Anion Gap 12 mmol/L; Blood Urea Nitrogen 19 mg/dL (9-20); Calcium 8.8 mg/dL (8.4-10.2); Carbon Dioxide 18 mmol/L (22-30); Chloride 114 mmol/L (98-107); Glucose 215 mg/dL (74-99); Non-African American GFR(CKD) >90 (>60 ml/min/1.73 sqM); Sodium 144 mmol/L (137-145)
[2021-01-22 10:15] LABS: Potassium 3.4 mmol/L (3.5-5.1)
[2021-01-22 10:16] LABS: Magnesium 1.7 mg/dL (1.6-2.3)
--- NOTE | 2021-01-22 11:19 | PN ---
PROGRESS NOTE Patient is seen for followup for acute kidney injury mostly prerenal associated with hypotension and volume depletion. Renal function has improved significantly with creatinine down to 0.7 now from 9.4 on initial admission. Patient is receiving IV fluids. PHYSICAL EXAMINATION: On examination today, blood pressure is 113/66, heart rate 87 per minute. He is afebrile. Examination of lower extremities shows no evidence of edema. Abdomen is soft, nontender. LABS: Labs show sodium 144, potassium 3.4, chloride 114, CO2 is 18, BUN 19, creatinine 0.73. ASSESSMENT: 1. Acute kidney injury associated volume depletion, hypotension currently improved. 2. Hypokalemia associated with decreased oral intake, gastrointestinal fluid loss, status post replacement. 3. Metabolic acidosis associated with diarrhea, currently stable. Patient is maintained on IV bicarb. PLAN: Continue with the IV bicarb for another day and I will add oral sodium bicarb in the meantime as well. Repeat labs in a.m. MMODL / IJN: [id number] /
[2021-01-22] MEDS: LOPERAMIDE 2 MG CAP PO SCH ×3 (13:43→20:36)
[2021-01-22] MEDS: ATORVASTATIN 10 MG TAB PO SCH (20:35)
[2021-01-22] MEDS: SODIUM BICARBONATE TAB 650 MG TAB PO SCH (20:36)
--- NOTE | 2021-01-22 23:11 | P.PN ---
Progress Note - Text Progress Note Date: 01/22/21 Chief Complaint: Tired History of presenting complaint: This is a pleasant [address] Hanley. He was diagnosed with COVID about 2 weeks ago. Initially a slight cough and some shortness of breath. in the ER about a week ago but he was discharged on. On the last few days he has developed quite a bit of diarrhea. He feels every time he eats or drink at rest through. Some nausea. His blood pressure at home was noted to be about 60 systolic. He gets dizzy lightheaded when he stands up. Feels very tired and rundown. He had some fever earlier than likely improved. About 10 days ago when he was here his renal function was normal. Appetite has been poor. Decreased urine output Admitted with acute kidney injury with a creatinine of 9.43. Acute diarrhea or to be from COVID 19. Placed on Metamucil and Lomotil. Hypotension from volume loss. Given IV fluids. Has COVID 19 pneumonia. Pulse ox is good. No indication for steroids Today-feeling better. Did walk to the bathroom. Creatinine is improving. Some improvement in diarrhea. Has been tolerating full liquids. Feeling better Review of systems: Was done for constitutional, cardiovascular, GI, pulmonary. relevant finding as above Active Medications Acetaminophen (Acetaminophen Tab 325 Mg Tab) 650 mg PO Q6HR PRN PRN Reason: Mild Pain or Fever > 100.5 Last Admin: 01/22/21 08:59 Dose: 650 mg Documented by: Hydrocodone Bitart/Acetaminophen (Hydrocodone/Apap 5-325mg 1 Each Tab) 1 each PO Q6HR PRN PRN Reason: Pain Atorvastatin Calcium (Atorvastatin 10 Mg Tab) 10 mg PO HS [facility] Last Admin: 01/22/21 20:35 Dose: 10 mg Documented by: Enoxaparin Sodium (Enoxaparin 40 Mg/0.4 Ml Syringe) 40 mg SQ DAILY [facility] Last Admin: 01/22/21 08:59 Dose: 40 mg Documented by: Famotidine (Famotidine 20 Mg Tab) 20 mg PO BID [facility] Last Admin: 01/22/21 20:35 Dose: 20 mg Documented by: Fluoxetine HCl (Fluoxetine Hcl 10 Mg Cap) 10 mg PO DAILY [facility] Last Admin: 01/22/21 08:59 Dose: 10 mg Documented by: Sodium Bicarbonate 50 ml/ (Dextrose/Sodium Chloride) 1,050 mls @ 125 mls/hr IV .Q8H24M [facility] Last Admin: 01/22/21 21:10 Dose: 125 mls/hr Documented by: Loperamide HCl (Loperamide 2 Mg Cap) 2 mg PO QID [facility] Last Admin: 01/22/21 20:36 Dose: 2 mg Documented by: Magnesium Oxide (Magnesium Oxide 400 Mg Tab) 800 mg PO DAILY [facility] Last Admin: 01/22/21 08:59 Dose: 800 mg Documented by: Miscellaneous Information (Potassium Replacement Protocol 1 Each Misc) 1 each MISCELLANE DAILY PRN; Protocol PRN Reason: Per Protocol Miscellaneous Information (Magnesium Replacement Protocol 1 Each Misc) 1 each MISCELLANE DAILY PRN; Protocol PRN Reason: Per Protocol Naloxone HCl (Naloxone 0.4 Mg/Ml 1 Ml Vial) 0.2 mg IV Q2M PRN PRN Reason: Opioid Reversal Ondansetron HCl (Ondansetron 4 Mg/2 Ml Vial) 4 mg IVP Q4HR PRN PRN Reason: Nausea And Vomiting Psyllium Hydrophilic Mucilloid (Psyllium Husk 100% 6 Gm Packet) 6 gm PO BID [facility] Last Admin: 01/22/21 20:38 Dose: Not Given Documented by: Sodium Bicarbonate (Sodium Bicarbonate Tab 650 Mg Tab) 650 mg PO BID [facility] Last Admin: 01/22/21 20:36 Dose: 650 mg Documented by: Past medical history to include: GERD, hypertension, hyperlipidemia Social history: . 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 Former smoker. Alcohol occasionally Physical examination: VITAL SIGNS: 98.1, 78, 18, 111/78, 95% room air GENERAL: BMI 24.8, laying in bed, looking better EYES: Pupils equal. Conjunctiva normal. HEENT: External appearance of nose and ears normal, oral cavity grossly normal. NECK: JVD not raised; masses not palpable. HEART: First and second heart sounds are normal; no edema. LUNGS: Respiratory rate normal; clear to auscultation. ABDOMEN: Soft, nontender, liver spleen not palpable, no masses palpable. PSYCH: [Alert and oriented x3; mood and affect tired l. INVESTIGATIONS, reviewed in the clinical context: January 22: Potassium 3.4 chloride 114 creatinine 0.73 WBC 9.8 hemoglobin 14.1 platelet 610 potassium 3.2 bun 53 creatinine 3.26 magnesia 1.4 EKG tracing personally reviewed by me-normal sinus rhythm nonspecific ST/T-wave changes Admission labs: WBC 12.8 hemoglobin 14.3 potassium 3.5 bun 73 creatinine 9.43 Coronavirus [PCR]-detected Previous labs: Creatinine 0.951 January 08 of this year Assessment and plan: -Acute severe kidney injury, prerenal due to diarrhea and decreased oral intake. IV fluids given. Nearly normalized -Acute diarrhea likely due to COVID 19. Metamucil to bind up the bowels. Add Imodium scheduled. -Nausea secondary to COVID 19. Better. Advance diet -GERD, use Pepcid -Essential hypertension. Hold off antihypertensive -Symptomatic hypotension from volume loss. IV fluids. -Hyperlipidemia, on Zocor -Anxiety on Prozac -DVT prophylaxis placed on Lovenox -COVID 19 pneumonia. x-ray on January 08 showed infiltrates. Patient's pulse ox is good. No indication for steroids. Discussed with patient. Encouraged to sit up in a chair increase activity in the room. Hopefully discharge in 24 hours
[2021-01-23] MEDS: ACETAMINOPHEN TAB 325 MG TAB PO PRN ×2 (00:13→09:14)
[2021-01-23] MEDS: DEXTROSE 5%-0.45% NACL 1,000 ML with SODIUM BICARB (1 MEQ/ML) 50 ML IV SCH ×2 (03:34)
[2021-01-23 09:13] VITALS: PULSE 78; TEMP 98.1
[2021-01-23] MEDS: MAGNESIUM OXIDE 400 MG TAB PO SCH (09:13)
[2021-01-23] MEDS: ENOXAPARIN 40 MG/0.4 ML SYRINGE SQ SCH (09:13)
[2021-01-23] MEDS: FAMOTIDINE 20 MG TAB PO SCH (09:14)
[2021-01-23] MEDS: FLUoxetine HCL 10 MG CAP PO SCH (09:14)
[2021-01-23] MEDS: LOPERAMIDE 2 MG CAP PO SCH ×2 (09:14→12:19)
[2021-01-23] MEDS: SODIUM BICARBONATE TAB 650 MG TAB PO SCH (09:14)
[2021-01-23 10:50] LABS: African American GFR (CKD) >90 (>60 ml/min/1.73 sqM); Anion Gap 7 mmol/L; Blood Urea Nitrogen 6 mg/dL (9-20); Calcium 8.3 mg/dL (8.4-10.2); Carbon Dioxide 30 mmol/L (22-30); Chloride 106 mmol/L (98-107); Glucose 198 mg/dL (74-99); Non-African American GFR(CKD) >90 (>60 ml/min/1.73 sqM); Potassium 3.3 mmol/L (3.5-5.1); Sodium 143 mmol/L (137-145)
[2021-01-23] MEDS ORDERED: Potassium Replacement Protocol 1 EACH MISC MISCELLANE PRN (11:13)
[2021-01-23] MEDS: POTASSIUM CHLORIDE ER 20 MEQ TAB.ER PO SCH ×2 (12:19→13:42)
[2021-01-23 12:22] VITALS: BP 124/70
--- NOTE | 2021-01-23 17:29 | PN ---
PROGRESS NOTE Patient is seen for followup for acute kidney injury. Renal function has improved significantly, with creatinine down to 0.6 mg/dL from admission creatinine of 9.4. Patient was hypotensive and has been maintained on IV fluids with improvement in his renal function and urine output. PHYSICAL EXAMINATION: Blood pressure is 130/67, heart rate 78 per minute. He is afebrile. Examination of the legs shows no evidence of edema. Abdomen is soft, nontender. [employer] exam grossly intact. LABS: Sodium 143, potassium 3.3, BUN 6, serum creatinine 0.6. ASSESSMENT: 1. Acute kidney injury secondary to hypotension, volume depletion, now resolved. 2. Hypokalemia associated with decreased oral intake, GI fluid loss, status post replacement. 3. Hypotension associated with volume depletion, now improved. 4. Metabolic acidosis associated with diarrhea and renal failure, now improved. PLAN: Patient can be discharged. Repeat labs as outpatient in about 3-4 days' time. MMODL / IJN: [id number] /
--- NOTE | 2021-01-23 23:02 | P.DS ---
Providers Date of admission: 01/20/21 16:57 Attending physician: Cristóbal Wilson Consults: 01/20/21 16:59 Consult Physician Urgent Consulting Provider: Flavia Sylvester Consult Reason/Comments: WAYNE Do you want consulting provider notified?: Yes Primary care physician: Ken [facility] Course: Diagnoses: -Acute Covid gastroenteritis, improved -Acute kidney injury, prerenal secondary to above, creatinine back to normal upon discharge -Essential hypertension. Hold off antihypertensive -Symptomatic hypotension from volume loss. Blood pressure improved upon discharge -History of GERD -Hyperlipidemia, on Zocor -Anxiety on Prozac Hospital course: This is a pleasant 60 years old male who presents with signs and symptoms of acute Covid gastroenteritis with diarrhea and nausea vomiting, dehydration and acute kidney injury with creatinine 3.2. Patient was treated with IV fluid and symptomatic treatment with nephrology evaluated the patient closely. Patient was treated with bicarbonate drip. Renal ultrasound showed no hydronephrosis. CT was negative. Patient showed interval improvement on the day of discharge he is tolerating diet well, his diarrhea is improved significantly and his c reatinine is back to normal at 0.7 and patient was cleared for discharge by nephrology service. Patient denies dyspnea or chest pain. He is saturating 95 on room air. No fever. Problems and management plan were discussed with the patient and he verbalized understanding and acceptance Patient was found stable and can be discharged home however he needs follow-up as an outpatient. Patient was instructed to follow up with PCP Dr. Hanley.within one week and patient agrees with appointment on on 01/24 Also patient was instructed to follow up with hedis analyst and he agrees with the appointments made for him 02/17 Physical exam Gen: patient is a AAOx3, no distress CVS: S1-S2, RRR, no murmur Lungs: B/L CTA, no wheezing Abdomen: soft, no distention, no tenderness, positive bowel sounds Extremity: no leg edema or induration Time spent more than 35 minutes Patient Condition at Discharge: Fair Plan - Discharge Summary Discharge Rx Participant: No New Discharge Prescriptions: New Loperamide [Imodium] 2 mg PO QID PRN #10 cap PRN Reason: Diarrhea lisinopriL [Zestril] 10 mg PO DAILY #30 tab Continue Pantoprazole Sodium [Protonix] 40 mg PO DAILY Simvastatin [Zocor] 20 mg PO HS Magnesium Oxide [Mag-Ox] 800 mg PO DAILY FLUoxetine HCL [PROzac] 10 mg PO DAILY HYDROcodone/APAP 5-325MG [[place] 5-325] 1 tab PO Q6HR PRN PRN Reason: Pain Discontinued lisinopriL [Prinivil] 20 mg PO DAILY amLODIPine [Norvasc] 10 mg PO DAILY Discharge Medication List Pantoprazole Sodium [Protonix] 40 mg PO DAILY 01/11/15 [History] FLUoxetine HCL [PROzac] 10 mg PO DAILY 01/08/21 [History] Magnesium Oxide [Mag-Ox] 800 mg PO DAILY 01/08/21 [History] Simvastatin [Zocor] 20 mg PO HS 01/08/21 [History] HYDROcodone/APAP 5-325MG [[place] 5-325] 1 tab PO Q6HR PRN 01/20/21 [History] Loperamide [Imodium] 2 mg PO QID PRN #10 cap 01/23/21 [Rx] lisinopriL [Zestril] 10 mg PO DAILY #30 tab 01/23/21 [Rx] Follow up Appointment(s)/Referral(s): Flavia Sylvester MD [STAFF PHYSICIAN] - 02/17/21 1:00 pm Ken Hanley MD [Primary Care Provider] - 01/24/21 10:30 am (Televisit via [facility]. Please download the [facility] hitesh. Office will send you a link to click to sign in 15 minutes before your appointment time. Check your blood pressure before televisit to discuss whether you need to restart your lisinopril and amlodipine. ) Patient Instructions/Handouts: Acute Kidney Injury (DC) Activity/Diet/Wound Care/Special Instructions: Resume your previous diet Activity is restricted till you see your doctor Discharge Disposition: HOME WITH HOME HEALTH SERVICES
== END 2021-01-23 13:55 | disposition home or self-care (01) | DRG 177 ==
LOC: EC 15:03 → 3SCARD 16:57
PROVIDERS: ADMIT Hospitalist; ATTEND Hospitalist
DX: U07.1 COVID-19 (principal); N17.0 Acute kidney failure with tubular necrosis; J12.82 Pneumonia due to coronavirus disease 2019; A08.39 Other viral enteritis; E87.2 Acidosis; I95.9 Hypotension, unspecified; E86.0 Dehydration; E87.6 Hypokalemia; I10 Essential (primary) hypertension; K21.9 Gastro-esophageal reflux disease without esophagitis; E78.5 Hyperlipidemia, unspecified; F41.9 Anxiety disorder, unspecified; Z79.899 Other long term (current) drug therapy; Z87.891 Personal history of nicotine dependence; Z87.19 Personal history of other diseases of the digestive system; Z98.890 Other specified postprocedural states; Z88.1 Allergy status to other antibiotic agents; Z80.9 Family history of malignant neoplasm, unspecified
CPT/HCPCS: 36415; 51798; 74022; 76770; 80048; 80053; 81001; 83605; 83735; 84100; 84132; 84484; 85025; 85610; 85730; 87040; 87324; 87635; 93005; 96361; 96365; 96366; 96372; 96375; 99285